=== PATIENT | female | born 1965 | race Caucasian/White ===

== ENCOUNTER 2016-09-08 10:42 | Emergency (ER) | payer SELFPAY ==
[~2016-09-08] VITALS: Ht 167.6 cm; Wt 71.8 kg
[2016-09-08] MEDS ORDERED: SODIUM CHLORIDE 0.9% 1,000ML IV ONE (11:30)
[2016-09-08] MEDS ORDERED: ONDANSETRON 2MG/ML, 2ML IVPush ONE (11:30)
[2016-09-08] MEDS ORDERED: HYDROmorphone 1 MG/ML, 1ML ONE (11:44)
[2016-09-08] MEDS ORDERED: ONDANSETRON 2MG/ML, 2ML ONE (11:44)
[2016-09-08 11:52] LABS: BLOOD UREA NITROGEN 11 mg/dL (7-18)
[2016-09-08] MEDS: HYDROmorphone 1 MG/ML, 1ML IVPush PRN ×2 (12:00→12:15)
[2016-09-08 14:00] VITALS: BP 109/36
== END 2016-09-08 14:02 | disposition home or self-care (01) ==
LOC: ED 11:21
DX: N13.2 Hydronephrosis with renal and ureteral calculous obstruction (principal); R31.9 Hematuria, unspecified; Z88.0 Allergy status to penicillin
CPT/HCPCS: 36415; 74176; 80048; 81001; 82040; 85025; 87086; 96361; 96374; 96375; 99285; J1170; J2405; J7030